=== PATIENT | female | born 1960 | race Caucasian/White ===

== ENCOUNTER → 2020-09-14 | Outpatient (CLI) | payer OTHER ==
[~2020-09-14] MED LIST: CALCIUM + VITA1 EACH PO; LIPITOR 20 MG T20 M1 PO; THERATRUM COMP1 EAC2 PO; TRAMADOL 50 MG50 MG PO; VITAMIN C500 M2 PO
[2020-09-14 14:14] LABS: URINE BILIRUBIN NEGATIVE (Negative); URINE BLOOD NEGATIVE (Negative); URINE CLARITY CLEAR; URINE COLOR YELLOW; URINE GLUCOSE-RANDOM* NEGATIVE (Negative); URINE KETONES NEGATIVE (Negative); URINE LEUKOCYTES-REFLEX NEGATIVE (Negative); URINE NITRITE-REFLEX NEGATIVE (Negative); URINE PROTEIN (DIPSTICK) NEGATIVE (Negative); URINE SPECIFIC GRAVITY 1.015 (1.005-1.035); URINE UROBILINOGEN 0.2 E.U./dl (0.2-1.0)
[2020-09-14 14:16] LABS: HEMATOCRIT 41.8 % (37.0-47.0); HEMOGLOBIN 14.4 gm/dL (12.0-15.0); MCHC 34.4 g/dL (28.0-37.0); MCV 90.3 fL (80.0-100.0); RBC 4.62 mil/uL (4.20-5.00); RDW 13.7 % (10.5-14.5); WBC 7.8 thou/uL (4.0-11.0)
[2020-09-14 14:26] LABS: ALBUMIN 4.1 g/dL (3.4-5.0); CALCIUM 9.6 mg/dL (8.5-10.1); CREATININE 0.8 mg/dL (0.6-1.0); POTASSIUM 4.2 mmol/L (3.5-5.1)
[2020-09-14 14:30] LABS: INR 0.97; PROTIME 10.6 Seconds (10.5-12.1)
== END ==
LOC: PAC 13:02
PROVIDERS: Orthopaedic Surgery Sports Medicine; ATTEND Student in an Organized Health Care Education/Training Program
DX: Z01.812 Encounter for preprocedural laboratory examination (principal); Z20.822 Contact with and (suspected) exposure to COVID-19

== ENCOUNTER 2020-09-19 08:29 | Observation (INO) | payer OTHER ==
[~2020-09-19] VITALS: Ht 160 cm; Wt 99.3 kg
--- NOTE | ~2020-09-19 | O ---
[address] [address] OPERATIVE REPORT Name: LUCHO WESTON Room #: 442-P [facility] M.RSang#: [id number] Admission: 09/19/20 Attend Phys: Josr Chacko MD Discharge: Date of : 62 Report #: [id number] THIS REPORT FOR: cc: Josr Estrada MD, Michael D. MD McCabe, Michael P. MD ~ DOC #: [id number] Josr Chacko MD DATE OF SERVICE: 09/19/2020 SERVICE: Orthopedics. FACILITY: [facility]. SURGEON: Josr Chacko MD SENIOR RESTAURANT MANAGER: Yoon Nevarez NP INDICATION FOR SENIOR RESTAURANT MANAGER: Extremity positioning, assistance with exposure, retraction, reconstruction as well as wound closure. PREOPERATIVE DIAGNOSIS: Severe left knee arthritis. POSTOPERATIVE DIAGNOSIS: Severe left knee arthritis. PROCEDURE PERFORMED: 1. Left total knee arthroplasty. 2. Robotic-assisted arthroplasty. COMPLICATIONS: None. DRAINS: None. SPECIMENS: None. ANESTHESIA: General with regional. ESTIMATED BLOOD LOSS: 50 mL FINDINGS: Fernández and Nephew Ramiro Oxinium size 6 femoral component with size 5 tibial component, a 10 mm constrained poly insert and a 35 mm patellar button. HISTORY: The patient is a 60-year-old female with history of persistent progressive bilateral knee osteoarthritis, left side worse than right that had been treated conservatively with rest, activity modifications, physical therapy, oral medicines, injections, and modalities. All of these eventually provided [address] [place] [address] OPERATIVE REPORT Name: LUCHO WESTON BROWN Room #: 442-P [facility] M..#: [id number] Admission: 09/19/20 Attend Phys: Josr Chacko MD Discharge: Date of : 62 Report #: [id number] insufficient relief. She had x-rays showing [id number]-dh-[id number] arthritis with sclerosis and osteophytes and she had failed conservative measures and had pain that affected her activities of daily living. She was, therefore, indicated for surgical treatment after ensuring that she was in optimal health medically. Risks, benefits, alternatives, and indications of surgery were discussed with her in detail. Risks include, but are not limited to, pain, bleeding, infection, injury to nerves or blood vessels, need for further surgery including revision, stiffness as well as complications related to anesthesia. Despite these risks, she wished to proceed. DESCRIPTION OF PROCEDURE: After left lower extremity was correctly identified in the preoperative holding area as the operative extremity, the patient underwent regional nerve block. She was then taken to the operating room where general anesthesia was induced without complication. She was padded appropriately. A tourniquet was applied to the left lower extremity. Prophylactic antibiotics were administered at appropriate time as well as TXA. Left leg was then prepped and draped in standard sterile fashion. Timeout procedure performed. Esmarch was used, tourniquet inflated to 300 mmHg. A standard anterior approach was made with medial parapatellar arthrotomy. Dissection was taken down to the knee and the retropatellar fat pad was resected, as were the anterior horns of the menisci and the osteophytes and the cruciate ligaments. A limited soft tissue release was performed initially. We placed the checkpoints and the half pins for the Fernández [employer] Nephew Navio system to assist in optimal position of the implants and then proceeded with templating. It was clear that she was tight medially, both in flexion and extension. She had a 9-degree flexion contracture as well as a rather significant amount of external rotation preoperatively, so I considered all of these things in the templating and made plans for medial release. Ultimately, the solution for balancing was to complete the osteophyte resection on the medial tibia in addition to the posterior medial pie crusting soft tissue release, which was done later in the procedure. The bur was used to perform the distal cut on the femur and then a 5-in-1 cutting block was used per the templating to mill the femur for appropriate sizing and then the tibia was cut as well. We proceeded with resection of the residual posterior horn of the medial and lateral menisci and then used the sizing blocks to assess the gaps. At this point, the medial side was quite tight, but 10 block was appropriate and so we used the lamina education courses sales representative to perform a pie crusting technique to release the medial soft tissues. This helped, but did not adequately correct for the medial tightness and so ultimately the residual medial osteophytes were resected off the medial tibia and this did allow for better balancing. After the pie crusting had been completed, the posterior capsule was injected with periarticular injection cocktail and then we proceeded with placement of the trials and then completed preparation of the femur as well as preparation of the patella. The Navio was used to assess the balancing and there was tightness. [address] [address] OPERATIVE REPORT Name: LUCHO WESTON BROWN Room #: 442-P [facility] M.R.#: [id number] Admission: 09/19/20 Attend Phys: Josr Chacko MD Discharge: Date of : 62 Report #: [id number] At this point, I did remove the medial osteophytes off the tibia and this allowed for better alignment; however, there was some new medial laxity simply because the medial collateral ligament deep fibers had to be detached in order to resect all of the medial osteophytes, but this corrected after repair of the medial soft tissue envelope. After a satisfactory balancing position was confirmed, the trials were removed. Final preparation of the femur and tibia was completed with some microfracture performed of the sclerotic medial tibial bone. The final implants were then cemented in position. Excess cement was resected. The 10 mm poly constrained trial was placed and the knee was placed in extension while the cement cured. The rest of the periarticular injection cocktail was injected in the soft tissues and then tourniquet was let down and hemostasis was achieved after the cement was hardened, the balancing was assessed manually and visually and confirmed some medial laxity, but with tensioning of the MCL, this improved. Therefore, final implants were selected. I did think the constrained was better due to the temporary MCL deficiency that she while the MCL is healing. The wound was copiously irrigated and then the arthrotomy was closed with over a gram of vancomycin powder with 0 Vicryl suture in grqtdu-vu-[id number] fashion. [place] flexion test was performed, confirmed that watertight closure had been achieved. Note that the medial soft tissue envelope was securely repaired, as were the deep fibers of the MCL. The skin was closed with 2-0 Vicryl followed by running subcuticular 3-0 Monocryl. A sterile dressing was applied followed by compression stocking and a PolarCare device and then the patient was awakened from anesthesia and taken to recovery room in stable condition. There were no complications. All counts were correct. Josr Chacko MD MPM/VIS By: [id number] Josr Chacko MD /ori
[2020-09-19 10:32] VITALS: BP 155/88
[2020-09-19 16:30] VITALS: BP 153/88
[2020-09-19 16:45] VITALS: BP 163/102
[2020-09-19 17:00] VITALS: BP 157/95
--- NOTE | 2020-09-19 18:30 | NUR ---
PT RECEIVED FROM REC RM AT 1435 AWAKE BUT DROWSY AND NO PAIN. EATING AND DRINKING WELL. UP W/ WALKER TO BSC AND DID WELL. POLAR KRUPA IN PLACE. TRANSFERRED TO [facility] W/ STANDBY AND DID WELL. PAIN MED GIVEN.
[2020-09-19 21:19] VITALS: BP 158/85
--- NOTE | 2020-09-20 00:46 | NUR ---
ASSESSED AT START OF SHIFT. PT A &OX4. DENIES N/V. RATES PAIN 10 MANAGED WITH PO PAIN MEDICATION. PT UP WITH ASSISTX1 TO THE BSC. LAURENCE DRESSING, POLAR PACK AND SCD'S IN PLACE. LEONELA GARCIA ON BLE. ANTICIPATING D/C TOMOTRROW NO FURTHER SIGNS OF DISCOMFORT WILL CONT TO MONITOR.
[2020-09-20 05:23] LABS: ABSOLUTE NEUTROPHILS 10.8 thou/uL (1.4-8.2); BASOPHILS 0.2 % (0.0-2.0); HEMATOCRIT 35.9 % (37.0-47.0); HEMOGLOBIN 12.1 gm/dL (12.0-15.0); LYMPHOCYTES 14.6 % (24.0-44.0); MCH 30.6 pg (26.0-34.0); MCHC 33.6 g/dL (28.0-37.0); MCV 91.1 fL (80.0-100.0); MONOCYTES 9.2 % (1.0-8.0); PLATELET COUNT 204 thou/uL (150-400); RBC 3.94 mil/uL (4.20-5.00); RDW 14.2 % (10.5-14.5); WBC 14.2 thou/uL (4.0-11.0)
[2020-09-20 05:28] VITALS: BP 109/61
[2020-09-20 05:30] LABS: CALCIUM 8.6 mg/dL (8.5-10.1); CREATININE 0.8 mg/dL (0.6-1.0); MAGNESIUM 1.8 mg/dL (1.8-2.4); POTASSIUM 3.9 mmol/L (3.5-5.1)
[2020-09-20 07:46] VITALS: BP 112/62
--- NOTE | 2020-09-20 10:38 | NUR ---
ASSUMED CARE OF PT AT 0700 THIS MORNING. PT WAS ADMITTED FOR POST OP TOTAL KNEE REPLACEMENT. PT IS A/OX4, SKIN INTATACT WITH NO TENTING, INCISION SITE COVERED WITH LAURENCE, POLAR PK, TEDS ON BILAT LEGS AND SCD'S IN PLACE. LUNGS ARE CLEAR ALL DUNCAN, ABD NONTENDER/SOFT, ACTIVE BOWEL SOUNDS. DISTAL PULSES PRESENT IN LOWER EXTREMITIES. PT IS BEING DISCHARGED AFTER FINAL PHYS THERAPY EVAL AT 1330HRS. ASSESSMENTS OTHERWISE UNREMARKABLE. PT IS BEING DICHARGED WITH INSTRUCTIONS. MEDS AND TX'S GIVEN SCHEDULED.
[2020-09-20 11:06] VITALS: BP 112/62
--- NOTE | 2020-09-20 11:09 | NUR ---
ASSESSMENT: CM REVIEWED CHART AND SPOKE WITH PT AND HER . PT IS ALERT AND ORIENTED X4. PT IS S/P KNEE REPLACEMENT. PT REPORTS LIVING IN A HOUSE WITH AND STATES SHE HAS ACCESS TO A RAMP TO ENTER AND NO STEPS SHE HAS TO USE ONCE INSIDE. PT REPORTS THAT SHE HAS A WALKER AND WHEELCHAIR AT HOME. PT REPORTS THAT SHE HAS OUTPATIENT THERAPY ARRANGED AT [facility] TO BEGIN ON FRIDAY. CM DISCUSSED ROLE. PT REPORTS SHE DOES NOT ANTICIPATE HAVING ANY NEEDS FROM CM. PLANS TO LIKELY DISCHARGE TODAY.
== END 2020-09-20 14:08 | disposition home or self-care (01) ==
LOC: OR → TBA 08:29 → OR 08:29 → TBA 08:36 → OR 08:57 → TBA 13:03 → OR 13:15 → 4S 14:37 → OR 14:40 → 4S 09-20 14:08
PROVIDERS: Nurse Practitioner; ADMIT Orthopaedic Surgery Sports Medicine; ATTEND Orthopaedic Surgery Sports Medicine
DX: M17.12 Unilateral primary osteoarthritis, left knee (principal); E78.5 Hyperlipidemia, unspecified; Z85.3 Personal history of malignant neoplasm of breast; Z87.891 Personal history of nicotine dependence; Z79.899 Other long term (current) drug therapy
CPT/HCPCS: 50010; 50101; 50415; 50954; 51130; 51225; 51320; 52001; 52282; 53000; 53078; 53365; 54118; 56527; 56528; 57095; 57103; 57110; 57127; 57180; 62110; 62900; 64039; 70005